=== PATIENT | female | born 1990 | race Caucasian/White ===

== ENCOUNTER 2016-11-09 16:45 | Outpatient (CLI) | payer MEDICAID ==
[~2016-11-09] VITALS: Ht 170.2 cm; Wt 117.1 kg
[2016-11-09] MEDS ORDERED: PRENAT PO (17:14)
[2016-11-09 17:15] VITALS: BP 126/72; PULSE 88; RESP 18
[2016-11-09 17:48] LABS: ADD UMIC YES; URINE BILIRUBIN (Dip) NEGATIVE (NEGATIVE); URINE BLOOD (Dip) NEGATIVE (NEGATIVE); URINE GLUCOSE (Dip) NEGATIVE (NEGATIVE); URINE KETONES (Dip) 3+ (NEGATIVE); URINE LEUKOCYTE ESTERASE (Dip) 2+ (NEGATIVE); URINE NITRITE (Dip) NEGATIVE (NEGATIVE); URINE TOTAL PROTEIN (Dip) TRACE (NEGATIVE); URINE UROBILINOGEN (Dip) 0.2 E.U./dL (0.1-1.0)
[2016-11-09 18:04] LABS: URINE COLOR YELLOW (YELLOW)
--- NOTE | 2016-11-09 18:08 | RADRPT ---
PROCEDURE: US OB biophysical profile. CLINICAL INDICATION: Elevated blood pressure. TECHNIQUE: Multiple sonographic images of the pelvis were obtained. The images were reviewed on a PACS workstation. COMPARISON: No. FINDINGS: Cardiac activity is present with 153 beats per minute. There is a cephalic presentation. The placenta is right lateral grade 2. Amniotic fluid index: 10.6 cm. Biophysical profile: movement 2/2 tone 2/2. breathing 2/2 CATHY 2/2 Total 03/26 IMPRESSION: 1. See above. RPTAT:AAJJ . Physician Saman Date Time Electronically viewed and signed by Physician Saman on 11/09/2016 18:07 LIBAN/
[2016-11-09 18:13] LABS: BACTERIA,URINE MODERATE; SQUAMOUS EPITHELIAL CELL,UR MANY; URINE RBCS 0-2 /HPF (0)
[2016-11-09 18:28] LABS: ADD SCAN DIFF NO
[2016-11-09 18:33] LABS: BASOPHILS % 0.2 % (0.0-2.0); EOSINOPHILS % 0.3 % (0.0-7.0); HEMATOCRIT 30.5 % (37.0-47.0); HEMOGLOBIN 10.4 g/dl (12.0-16.0); LYMPHOCYTES # 1.4 10^3/ul (0.8-2.9); LYMPHOCYTES % 15.8 % (15.0-51.0); MEAN CORPUSCULAR HEMOGLOBIN 31.2 pg (29.0-33.0); MEAN CORPUSCULAR HGB CONC 34.1 g/dl (32.0-37.0); MEAN CORPUSCULAR VOLUME 91.6 fl (82.0-101.0); MEAN PLATELET VOLUME 11.1 fl (7.4-10.4); MONOCYTE # 0.6 10^3/ul (0.3-0.9); NEUTROPHIL # 7.1 10^3/ul (1.6-7.5); NEUTROPHILS % 77.3 % (39.0-77.0); PLATELET COUNT 180 10^3/UL (140-415); RED BLOOD COUNT 3.33 10^6/ul (4.20-5.40); RED CELL DISTRIBUTION WIDTH 12.8 % (11.5-14.5); WHITE BLOOD COUNT 9.1 10^3/ul (4.8-10.8)
[2016-11-09 18:47] LABS: ALBUMIN 3.4 g/dl (3.3-4.9)
[2016-11-09 18:48] LABS: POTASSIUM 3.9 mmol/L (3.5-5.1)
[2016-11-09 18:50] LABS: BILIRUBIN,INDIRECT 0.2 mg/dl (0-1.1); BILIRUBIN,TOTAL 0.2 mg/dl (0.2-1.3); CREATININE 0.53 mg/dl (0.44-1.00)
[2016-11-09 18:51] LABS: ALBUMIN/GLOBULIN RATIO 1.13; CALCIUM 9.5 mg/dl (8.4-10.2); TOTAL PROTEIN 6.4 g/dl (6.1-8.1)
--- NOTE | 2016-11-09 18:57 | HP ---
Date/Time of Note Date/Time of Note DATE: 11/09/16 TIME: 18:53 OB - History Hx of Present Free Text/Dictation OB Triage 26yo G1 at 38+5 presents from clinic for r/o PIH after having an BP of 145/94. Pt denies headache, visual changes, RUQ pain, UCs, VB or UCs. Reports normal FM. PROCEDURE: US OB biophysical profile. CLINICAL INDICATION: Elevated blood pressure. TECHNIQUE: Multiple sonographic images of the pelvis were obtained. The images were reviewed on a PACS workstation. COMPARISON: No. FINDINGS: Cardiac activity is present with 153 beats per minute. There is a cephalic presentation. The placenta is right lateral grade 2. Amniotic fluid index: 10.6 cm. Biophysical profile: movement 2/2 tone 2/2. breathing 2/2 CATHY 2/2 Total 03/26 IMPRESSION: 1. See above. Estimated Due Date: Nov 18, 2016 : 1 Care: Good Care Obstetrical Complications: None Medical Complications: None Past Family/Social History * Obstetric Histories reviewed from chart. OB Admission Exam Vital Signs Vital Signs Vital Signs Date Time Temp Pulse Resp B/P Pulse Ox O2 Delivery O2 Flow Rate FiO2 11/09/16 17:15 98.0 88 18 126/72 98 Room Air BPs 120/68, 127/70, 120/66, 116/66, 116/67, 114/64 Physical Exam Heart Rate: 120's Accelerations: Accelerations Present Decelerations: No Decelerations Varibility: Moderate Contractions on Admission: None Last 72 hours Lab Results CBC & BMP 11/09/16 17:58 Liver Function Test 11/09/16 17:58 Albumin 3.4 Aspartate Amino Transf (AST/SGOT) 18 Direct Bilirubin 0.00 Total Protein 6.4 OB Assessment/Plan Other Assessment: Single unsustained BP in clinic Reassuring FWB Other plan: F/up PIH labs. Reactive NST, normal BPP/CATHY Plan for d/c pending normal labs Recommend d/c home with 24hr urine collection Will signout pt to PM Laborist JUNAID DAMICO MD Nov 09, 2016 18:57
--- NOTE | 2016-11-09 19:32 | TRIAGE ---
OB Triage Datetime Report Generated by CPN: 11/09/2016 19:32 Datetime: 11/09/2016 18:48 Labor Evaluation Frequency: 0 Monitor Mode: External Pattern: Normal: <= 5 Contractions in 10 Minutes Resting Tone [place]: Relaxed Heart Rate FHR Baseline Rate: 130 FHR Baseline Changes: No Baseline Change Variability: Moderate 6-25 bpm Accelerations: 15X15 Decelerations: None Datetime: 11/09/2016 18:00 Labor Evaluation Frequency: 0 Monitor Mode: External Pattern: Normal: <= 5 Contractions in 10 Minutes Resting Tone [place]: Relaxed Heart Rate FHR Baseline Rate: 135 FHR Baseline Changes: No Baseline Change Variability: Moderate 6-25 bpm Accelerations: 15X15 Decelerations: None Datetime: 11/09/2016 17:11 Time of Arrival: 11/09/2016 16:41 EGA: 38.5 Arrived By: Ambulatory Arrived From: Dr. Roblero Chief Complaint: ELEV BP IN CLINIC Movement: Present Contractions: Denies/Absent Rupture of Membranes: Denies Vaginal Bleeding: None Vaginal Discharge: Present Patient Complaints: Other Time Provider Notified: 11/09/2016 16:45 Provider Notified: DR. DAMICO Initial Plan: NST, BPP, CBC, LIVER PROFILE, CMP, UA Datetime: 11/09/2016 17:07 Stage of : OB Triage Assessment Type: Triage Maternal Assessment Level of Consciousness: Fully Conscious DTR's/Clonus: DTRs 1+; No Clonus Headache: Denies Blurred Vision: No Respiratory Effort: Unlabored; Regular Rhythm; Equal Expansion Breath Sounds, Left: Clear and Equal Breath Sounds, Right: Clear and Equal Nausea/Vomiting: Denies RUQ Epigastric Pain: Denies Lower Extremities Edema: Bilateral Lower Extremities Degree: 1+ Upper Extremities Edema: Bilateral Upper Extremities Degree: 1+ Facial Edema: None Temperature Route: Oral Fall Risk Assessment History of Falling: (0) No Secondary Diagnosis: (0) No Ambulatory Aid: (0) Bedrest/Nurse Assist IV Therapy: (0) No Gait: (0) Normal/Bedrest/Immobile Mental Status: (0) Oriented to Own Ability Fall Score: 0 Fall Risk Score Definition: No Risk: No action required Pain Assessment Pain Scale: 0 Pain Presence: None/Denies Pain Type: N/A
[2016-11-10] MEDS ORDERED: FER325 PO (08:42)
[2016-11-10] MEDS ORDERED: FOLI-49 PO (08:42)
[2016-11-10] MEDS ORDERED: CALC600T11 PO (08:42)
== END 2016-11-09 19:26 | disposition home or self-care (01) ==
LOC: L-D 16:45 → OBT 16:45
PROVIDERS: ATTEND Obstetrics & Gynecology
DX: O26.893 Other specified pregnancy related conditions, third trimester (principal); R03.0 Elevated blood-pressure reading, without diagnosis of hypertension; Z3A.38 38 weeks gestation of pregnancy
CPT/HCPCS: 76818; 80053; 80076; 81001; 85025; Z7500; 81003; G0463

== ENCOUNTER 2016-11-10 08:20 | Inpatient (IN) | payer MEDICAID ==
[~2016-11-10] VITALS: Ht 167.6 cm; Wt 117.1 kg
[~2016-11-10 08:20] MED LIST: PRENAT PO
[2016-11-10] MEDS ORDERED: CALC600T11 PO (08:42)
[2016-11-10] MEDS ORDERED: FER325 PO (08:42)
[2016-11-10] MEDS ORDERED: FOLI-49 PO (08:42)
[2016-11-10 08:43] VITALS: Ht 167.6 cm; Wt 117.1 kg
[2016-11-10 08:44] VITALS: BP 123/65; PULSE 84; RESP 18
--- NOTE | 2016-11-10 09:15 | TRIAGE ---
OB Triage Datetime Report Generated by CPN: 11/10/2016 09:14 Datetime: 11/10/2016 09:03 Dilatation (cms): 1.0 Effacement (%): 40 Station: -3 Exam By: Kaylah LORA Membrane Status: Ruptured Membranes Rupture Method: Spontaneous Amniotic Fluid Color: Clear Amniotic Fluid Amount: Moderate Amniotic Fluid Odor: None Vaginal Bleeding: None Pool: Positive Cervix, Consistency: Firm Cervix, Position: Posterior Datetime: 11/10/2016 08:40 Assessment Type: Triage Level of Consciousness: Fully Conscious DTR's/Clonus: DTRs 1+; No Clonus Headache: Denies Blurred Vision: No Respiratory Effort: Unlabored; Regular Rhythm; Equal Expansion Breath Sounds, Left: Clear and Equal Breath Sounds, Right: Clear and Equal Nausea/Vomiting: Denies RUQ Epigastric Pain: Denies Lower Extremities Edema: Bilateral Lower Extremities Degree: 1+ Upper Extremities Edema: Bilateral Upper Extremities Degree: 1+ Facial Edema: None History of Falling: (0) No Secondary Diagnosis: (0) No Ambulatory Aid: (0) Bedrest/Nurse Assist IV Therapy: (0) No Gait: (0) Normal/Bedrest/Immobile Mental Status: (0) Oriented to Own Ability Fall Score: 0 Fall Risk Score Definition: No Risk: No action required Datetime: 11/10/2016 08:26 Monitor Mode: External Monitor Mode: External US Datetime: 11/09/2016 18:54 Time of Arrival: 11/10/2016 08:10 EGA: 38.6 Arrived By: Ambulatory Arrived From: Home Chief Complaint: C/O SROM SINCE 0800 Movement: Present Contractions: Denies/Absent Rupture of Membranes: Unsure Vaginal Bleeding: None Vaginal Discharge: Denies Recent Sexual Intercouse: Denies Abdominal Trauma: Not Applicable Patient Complaints: None Time Provider Notified: 11/10/2016 09:10 Initial Plan: EFM, SVE Datetime: 11/09/2016 18:48 Contraction Comments: EFM STOPPED BY DR. DAMICO Comments: EFM STOPPED BY DR. DAMICO
[2016-11-10] MEDS ORDERED: LACTATED RINGER'S 1,000 ML IV PRN (09:41)
[2016-11-10] MEDS ORDERED: OXYTOCIN 30 UNITS/LR 500 ML IV PRN (10:00)
[2016-11-10] MEDS ORDERED: AMPICILLIN 2 GM/NS (PMX) 100 ML IV ONE (10:00)
[2016-11-10] MEDS ORDERED: IBUPROFEN 600 MG TAB PO PRN (10:00)
[2016-11-10] MEDS ORDERED: MISOPROSTOL 200 MCG TAB PR PRN (10:00)
[2016-11-10] MEDS ORDERED: BUTORPHANOL 2 MG INJ IV PRN (10:00)
[2016-11-10] MEDS ORDERED: CARBOPROST 250 MCG INJ IM PRN (10:00)
[2016-11-10] MEDS ORDERED: OXYTOCIN 30 UNITS/LR 500 ML IV SCH ×2 (10:00)
[2016-11-10] MEDS ORDERED: LIDOCAINE 1% (MPF) 30 ML INJ INJ PRN (10:00)
[2016-11-10] MEDS ORDERED: METHYLERGONOVINE 0.2 MG INJ IM PRN (10:00)
[2016-11-10] MEDS: LACTATED RINGER'S 1,000 ML IV SCH ×2 (10:03→19:20)
[2016-11-10 10:11] LABS: ADD SCAN DIFF NO
[2016-11-10 10:34] LABS: PROTIME 13.2 Sec (12.2-14.2)
[2016-11-10 10:35] LABS: BASOPHILS % 0.4 % (0.0-2.0); EOSINOPHILS # 0.1 10^3/ul (0.0-0.5); HEMATOCRIT 30.7 % (37.0-47.0); HEMOGLOBIN 10.5 g/dl (12.0-16.0); LYMPHOCYTES # 1.2 10^3/ul (0.8-2.9); LYMPHOCYTES % 17.1 % (15.0-51.0); MEAN CORPUSCULAR HEMOGLOBIN 31.1 pg (29.0-33.0); MEAN CORPUSCULAR HGB CONC 34.2 g/dl (32.0-37.0); MEAN CORPUSCULAR VOLUME 90.8 fl (82.0-101.0); MEAN PLATELET VOLUME 11.2 fl (7.4-10.4); MONOCYTE # 0.5 10^3/ul (0.3-0.9); MONOCYTES % 7.7 % (0.0-11.0); NEUTROPHIL # 4.9 10^3/ul (1.6-7.5); NEUTROPHILS % 73.4 % (39.0-77.0); PLATELET COUNT 190 10^3/UL (140-415); RED BLOOD COUNT 3.38 10^6/ul (4.20-5.40); RED CELL DISTRIBUTION WIDTH 12.8 % (11.5-14.5); WHITE BLOOD COUNT 6.7 10^3/ul (4.8-10.8)
[2016-11-10 10:39] LABS: PARTIAL THROMBOPLASTIN TIME 30.5 Sec (25.0-35.0)
[2016-11-10] MEDS: OXYTOCIN 30 UNITS/LR 500 ML IV SCH (11:36)
[2016-11-10] MEDS: AMPICILLIN 1 GM/NS (PMX) 50 ML IV SCH ×3 (14:08→22:06)
[2016-11-11] MEDS ORDERED: FENTAnyl 2MCG/ML-ROPIV 0.2% 100 ML ONE (01:07)
[2016-11-11] MEDS ORDERED: ONDANSETRON 4 MG INJ IV PRN ×2 (01:30→19:00)
[2016-11-11] MEDS ORDERED: FENTAnyl 2MCG/ML-ROPIV 0.2% 100 ML BAG EPI SCH (01:30)
[2016-11-11] MEDS ORDERED: DIPHENHYDRAMINE 50 MG INJ IV PRN (01:30)
[2016-11-11] MEDS ORDERED: NALOXONE (0.4 MG/ML) INJ IV PRN (01:30)
[2016-11-11] MEDS ORDERED: ZOLPIDEM 5 MG TAB PO PRN ×2 (01:30→19:00)
[2016-11-11] MEDS: AMPICILLIN 1 GM/NS (PMX) 50 ML IV SCH ×4 (03:11→13:59)
[2016-11-11] MEDS: LACTATED RINGER'S 1,000 ML IV SCH ×2 (03:32→12:31)
[2016-11-11] MEDS: OXYTOCIN 30 UNITS/LR 500 ML IV SCH (10:24)
--- NOTE | 2016-11-11 16:44 | HP ---
Date/Time of Note Date/Time of Note DATE: 11/11/16 TIME: 16:43 OB - History Hx of Present Free Text/Dictation @38+6 wks GA with SROM : 1 Para: 0 Care: Good Care Ultrasounds: Normal mid trimester US Obstetrical Complications: None Medical Complications: None Past Family/Social History * Past Medical, Surgical, Family and Obstetric Histories reviewed from chart. OB Admission Exam Vital Signs Vital Signs Vital Signs Date Time Temp Pulse Resp B/P Pulse Ox O2 Delivery O2 Flow Rate FiO2 11/10/16 08:44 98.5 84 18 123/65 Room Air Physical Exam HEENT: WNL Abdomen: WNL Extremities: Normal Membranes: Ruptured Heart Rate: 140's Accelerations: Accelerations Present Decelerations: No Decelerations Varibility: Moderate Contractions on Admission: 6-10 Minutes Apart Last 72 hours Lab Results CBC & BMP 11/10/16 09:35 OB Assessment/Plan Reason for admission: observation Plan: Expectant Management Induction Method: per Pitocin Protocol OSCAR FINK M.D. Nov 11, 2016 16:44
--- NOTE | 2016-11-11 16:45 | LDN ---
Date/Time of Note Date/Time of Note DATE: 11/11/16 TIME: 16:44 Delivery Summary Placenta Delivered: Spontaneously Meconium: none Episiotomy: No Perineal laceration: 2 Sponge & Needle done & correct: Yes All needle counts correct: Yes Any foreign bodies felt in the: No Problems: Infant Delivery Information Apgars 1 Minute: 9 5 Minute: 9 Suctioning Nose & mouth suctioned at abbe: Yes Delee suction performed: Yes Umbilical Cord Umbilical cord with: 3 Vessels Cord presentations: no nuchal cord Cord Blood was obtained: Yes Mother & Baby Disposition Disposition Mom & Baby to Maternity; Good: Yes Baby to NICU: No OSCAR FINK M.D. Nov 11, 2016 16:45
[2016-11-11 18:30] VITALS: BP 139/81; PULSE 71; RESP 18
[2016-11-11] MEDS ORDERED: LACTATED RINGER'S 1,000 ML IV* SCH (18:44)
[2016-11-11 18:58] VITALS: BP 135/72; PULSE 72; RESP 18
[2016-11-11] MEDS ORDERED: BENZOCAINE 20% 56 ML SPRAY TOP PRN (19:00)
[2016-11-11] MEDS ORDERED: WITCH HAZEL/GLYCERIN PAD PR PRN (19:00)
[2016-11-11] MEDS ORDERED: ONDANSETRON 4 MG TAB PO PRN (19:00)
[2016-11-11] MEDS ORDERED: OXYCODONE/ASPIRIN (4.88/325) TAB PO PRN (19:00)
[2016-11-11] MEDS ORDERED: MISOPROSTOL 200 MCG TAB PR PRN (19:00)
[2016-11-11] MEDS ORDERED: SENNA/DOCUSATE NA (8.6MG/50MG) TAB PO PRN (19:00)
[2016-11-11] MEDS ORDERED: METHYLERGONOVINE 0.2 MG INJ IM PRN (19:00)
[2016-11-11] MEDS ORDERED: OXYTOCIN 30 UNITS/LR 500 ML IV PRN (19:00)
[2016-11-11] MEDS ORDERED: CARBOPROST 250 MCG INJ IM PRN (19:00)
[2016-11-11] MEDS ORDERED: LANOLIN 7 GM TUBE TOP PRN (19:00)
[2016-11-11 20:08] VITALS: BP 135/64; PULSE 79; RESP 18
[2016-11-11] MEDS: SENNA/DOCUSATE NA (8.6MG/50MG) TAB PO SCH (20:53)
[2016-11-12] MEDS: IBUPROFEN 600 MG TAB PO SCH ×5 (00:16→23:33)
[2016-11-12 00:19] VITALS: BP 126/72; PULSE 86; RESP 18
[2016-11-12 04:00] VITALS: BP 111/62; PULSE 72; RESP 18
[2016-11-12 07:40] VITALS: BP 113/57; PULSE 70; RESP 18
[2016-11-12 08:18] LABS: ADD SCAN DIFF NO
[2016-11-12 08:27] LABS: BASOPHILS % 0.5 % (0.0-2.0); EOSINOPHILS # 0.1 10^3/ul (0.0-0.5); HEMATOCRIT 26.7 % (37.0-47.0); LYMPHOCYTES # 1.7 10^3/ul (0.8-2.9); LYMPHOCYTES % 20.3 % (15.0-51.0); MEAN CORPUSCULAR HEMOGLOBIN 31.1 pg (29.0-33.0); MEAN CORPUSCULAR HGB CONC 33.7 g/dl (32.0-37.0); MEAN CORPUSCULAR VOLUME 92.4 fl (82.0-101.0); MEAN PLATELET VOLUME 11.5 fl (7.4-10.4); MONOCYTE # 0.8 10^3/ul (0.3-0.9); MONOCYTES % 9.3 % (0.0-11.0); NEUTROPHIL # 5.7 10^3/ul (1.6-7.5); NEUTROPHILS % 68.5 % (39.0-77.0); PLATELET COUNT 149 10^3/UL (140-415); RED BLOOD COUNT 2.89 10^6/ul (4.20-5.40); RED CELL DISTRIBUTION WIDTH 12.9 % (11.5-14.5); WHITE BLOOD COUNT 8.4 10^3/ul (4.8-10.8)
[2016-11-12] MEDS: SENNA/DOCUSATE NA (8.6MG/50MG) TAB PO SCH ×2 (09:11→21:00)
[2016-11-12 16:02] VITALS: BP 124/74; PULSE 80; RESP 16
--- NOTE | 2016-11-12 18:45 | PD.PPDC ---
BRAKE REPAIRER Discharge Instruction Condition Patient Condition: Good Diet Diet: Resume Regular Diet Activity/Restrictions Restrictions: No Sexual Activity Nothing in the Vagina No [place] No Tampons, douche Follow-up Follow-up with Physician: 3, Week/Weeks Return to clinic for GALLERY ASSISTANT Instructions: Fever greater than 101 Chills Worsening abdominal pain Excessive Vaginal Bleeding More than 2 pads per hour Unable to tolerate diet OB Instructions: Breast Tenderness Depression Blurried Vision Headache Surgical Instructions: Incisional Drainage Incisional Redness KATERIN MILLS MD Nov 12, 2016 18:45
[2016-11-12 19:50] VITALS: BP 133/72; PULSE 76; RESP 18
[2016-11-13 04:00] VITALS: BP 110/54; PULSE 73; RESP 18
[2016-11-13] MEDS: IBUPROFEN 600 MG TAB PO SCH ×2 (05:44→12:10)
--- NOTE | 2016-11-13 06:11 | DS ---
DATE OF ADMISSION: 11/10/2016 DATE OF DISCHARGE: 11/13/2016 FINAL DIAGNOSES: Intrauterine at term in labor. PROCEDURE: Normal spontaneous vaginal delivery with labor augmentation. CONDITION ON DISCHARGE: Stable. ACTIVITY: None per vagina. No heavy lifting x6 weeks. DIET: Regular. MEDICATIONS ON DISCHARGE 1. Motrin. 2. Iron. 3. Colace. DISCHARGE SUMMARY AND HOSPITAL COURSE: Ms. Mali Reed is a 26-year-old 1, para 0, intrauterine at term with spontaneous rupture of membrane admitted for labor augmentation on 11/10/2016. She had a normal spontaneous vaginal delivery on 11/11/2016. She had a viable fetu s with 9 and 9 respectively at 1 and 5 minutes. She had an uneventful day 1. She is ambulating, tolerating diet, positive flatulence, positive bowel movement. She will be discharge d on the above medications and follow up in the office in 3 weeks for care. Dictated By: KATERIN ARRIAZA/RESHMA Conf#: [id number] DID#: [id number]
[2016-11-13 08:03] VITALS: BP 131/69; PULSE 85; RESP 18
[2016-11-13] MEDS: SENNA/DOCUSATE NA (8.6MG/50MG) TAB PO SCH (08:43)
[2016-11-13] MEDS ORDERED: INFLUENZA VIRUS VACCINE 0.5 ML (DISPENSING) IM* ONE (09:00)
[2016-11-13] MEDS ORDERED: DIPHTH/TET/ACEL PERTUSS (ADULT) 0.5 ML VIAL IM* ONE (09:00)
== END 2016-11-13 17:22 | disposition home or self-care (01) | DRG 775 ==
LOC: OBT 08:20 → L-D 08:20 → OBT 09:10 → L-D 09:27 → PP1 11-11 18:38
PROVIDERS: ADMIT Obstetrics & Gynecology; ATTEND Obstetrics & Gynecology
PROC: 10E0XZZ Delivery of Products of Conception, External Approach (ICD-10-PCS; principal; 2016-11-11)
PROC: 0KQM0ZZ Repair Perineum Muscle, Open Approach (ICD-10-PCS; 2016-11-11)
PROC: 3E0234Z Introduction of Serum, Toxoid and Vaccine into Muscle, Percutaneous Approach (ICD-10-PCS; 2016-11-12)
PROC: 3E0234Z Introduction of Serum, Toxoid and Vaccine into Muscle, Percutaneous Approach (ICD-10-PCS; 2016-11-13)
DX: O70.1 Second degree perineal laceration during delivery (principal); Z37.0 Single live birth; Z23 Encounter for immunization; Z3A.38 38 weeks gestation of pregnancy
CPT/HCPCS: 36415; 62319; 85025; 85610; 85730; 86592; 86900; 86901; 90686; 90715; G0463; J0290; J2590; J3010; J7120